=== PATIENT | male | born 1955 ===

== ENCOUNTER 2021-09-16 09:49 | Outpatient (CLI) | payer MEDICAID ==
[2021-09-16] MEDS ORDERED: iohexol 300mg/ml 100ml inj. ONE (09:51)
== END 2021-09-16 23:59 | disposition home or self-care (01) ==
LOC: RAD 09:49
PROVIDERS: ATTEND Specialist
DX: K42.9 Umbilical hernia without obstruction or gangrene (principal); N20.0 Calculus of kidney; J98.11 Atelectasis; K86.89 Other specified diseases of pancreas; I70.8 Atherosclerosis of other arteries; J47.9 Bronchiectasis, uncomplicated
CPT/HCPCS: 74178; Q9967